=== PATIENT | male | born 1990 | race Caucasian/White ===

== ENCOUNTER 2018-06-18 02:02 | Emergency (ER) | payer SELFPAY ==
[2018-06-18] MEDS: CEFAZOLIN 1 GM INJ IM (03:35)
[2018-06-18] MEDS: DIPHTH/TET/ACEL PERTUSS (ADULT) 0.5 ML VIAL IM* (03:36)
[2018-06-18] MEDS: HYDROCODONE/APAP (10/325) TAB PO (03:36)
== END 2018-06-18 05:54 | disposition home or self-care (01) ==
LOC: E/R 02:02
DX: S69.92XA Unspecified injury of left wrist, hand and finger(s), initial encounter (principal); Y04.0XXA Assault by unarmed brawl or fight, initial encounter; Z23 Encounter for immunization
CPT/HCPCS: 73110; 73110-LT; 73130-LT; 90471; 90715; 96372; 99284-25